=== PATIENT | female | born 1955 | race Hispanic/Latino ===

== ENCOUNTER 2018-05-16 14:07 | Observation (INO) | payer OTHER ==
--- NOTE | 2018-05-16 14:30 | ED PDOC ---
Arrival/HPI - General Chief Complaint: Hip Pain Allergies/Home Meds Allergies/Adverse Reactions: Allergies No Known Allergies Allergy (Verified 05/16/18 14:09) Physical Exam Vital Signs Temp Pulse Resp BP Pulse Ox 05/16/18 14:09 98.4 F 100 H 18 143/108 H 99 Disposition/Present on Arrival - Disposition
[2018-05-16] MEDS ORDERED: Sodium Chloride 0.9% 1,000 ML IV STA (14:51)
[2018-05-16 15:41] LABS: BASO # 0.1 K/uL (0.0-0.2); BASO % 0.7 % (0.0-2.0); EOS # 0.1 K/uL (0.0-0.7); EOS % 0.4 % (0.0-4.0); HEMOGLOBIN 15.7 g/dL (12.0-16.0); LYMPH # 1.7 K/uL (1.0-4.3); LYMPH % 11.7 % (20.0-40.0); MEAN CELL VOLUME 86.4 fl (81.0-99.0); MEAN CORPUSCULAR HEMOGLOBIN 30.1 pg (27.0-31.0); MEAN CORPUSCULAR HGB CONC 34.8 g/dL (33.0-37.0); MEAN PLATELET VOLUME 9.5 fl (7.2-11.7); MONO # 1.2 K/uL (0.0-0.8); MONO % 8.2 % (0.0-10.0); NEUT # 11.4 K/uL (1.8-7.0); RBC 5.23 Mil/uL (3.80-5.20); RED CELL DISTRIBUTION WIDTH 13.3 % (11.5-14.5); WHITE BLOOD COUNT 14.4 K/uL (4.8-10.8)
[2018-05-16 15:51] LABS: ALB/GLOB RATIO 1.4 (1.0-2.1); ALBUMIN 4.3 g/dL (3.5-5.0); ALT/SGPT 29 U/L (9-52); AST/SGOT 32 U/L (14-36); BLOOD UREA NITROGEN 10 mg/dl (7-17); CALCIUM 9.8 mg/dL (8.4-10.2); GFR NON-AFRICAN AMERICAN > 60
--- NOTE | 2018-05-16 16:13 | RAD ---
Date of service: 05/16/2018 PROCEDURE: LEFT HIP WITH PELVIS RADIOGRAPHS HISTORY: L hip pain COMPARISON: None available. TECHNIQUE: Frontal views of the pelvis and left hip been submitted with frog-leg lateral view left hip. FINDINGS: Pelvic ring is intact swells left hip with no fracture or dislocation identified. Symmetric moderate bilateral hip and sacroiliac joint degenerative changes are identified. No destructive bony lesion appreciated. Pubic symphysis appears intact swells sacrum, including sacral arcades. Advanced degenerative changes seen at the inferior facet joints lumbar spine. Symmetric nonaggressive cyst is seen the bilateral femoral necks nearly identical in position and each side. IMPRESSION: No fracture of the pelvic ring or the left hip joint. No dislocation left hip joint. Degenerative changes identified as discussed above.
--- NOTE | 2018-05-16 16:13 | RAD ---
Date of service: 05/16/2018 PROCEDURE: Left Knee Radiographs. HISTORY: Pain. COMPARISON: None. FINDINGS: BONES: No acute fracture or destructive bony lesion identified. JOINTS: Patient unable to straighten the left knee. No dislocation or subluxation appreciated. Plan patellar location appears within normal limits overall. JOINT EFFUSION: None. OTHER FINDINGS: None. IMPRESSION: No acute fracture or dislocation left knee.
[2018-05-16 16:54] LABS: SQUAMOUS EPITHIAL 1 /hpf (0-5); URINE BACTERIA RARE (<OCC); URINE BILIRUBIN NEGATIVE (NEGATIVE); URINE BLOOD NEGATIVE (NEGATIVE); URINE CLARITY CLEAR (Clear); URINE COLOR STRAW (YELLOW); URINE GLUCOSE (UA) NEG (Normal); URINE LEUKOCYTE ESTERASE TRACE Leu/uL (Negative); URINE PROTEIN NEGATIVE (NEGATIVE); URINE UROBILINOGEN 0.2-1.0 mg/dL (0.2-1.0)
[2018-05-16] MEDS ORDERED: Iodixanol 320 MG/ML 100 ML BOTTLE IV ONE (18:19)
[2018-05-16] MEDS ORDERED: Sodium Chloride 0.9% 50 ML IV ONE (18:19)
--- NOTE | 2018-05-16 18:38 | US ---
Left lower extremity ultrasound. Indication: Left leg pain, rule out DVT Technique: Duplex ultrasound evaluation of the left lower extremity Comparison: None available Findings: There is normal flow, compressibility, and augmentation of the left common femoral, femoral, and popliteal veins. The left posterior tibial vein appears patent. Impression: No evidence of deep venous thrombosis in the left lower extremity.
[2018-05-16] MEDS ORDERED: Iohexol 300 100 ML IJ ONE (18:41)
--- NOTE | 2018-05-16 18:57 | US ---
Date of service: 05/16/2018 PROCEDURE: Pelvic ultrasound dated 04/14/2010 18. HISTORY: Severe L pelvic pain, leukocytosis COMPARISON: Correlation made with CT scan chest abdomen pelvis 04/07/2010. TECHNIQUE: Transabdominal/transvaginal sonographic evaluation of the pelvis performed. FINDINGS: The uterus is anteverted measuring approximately 5.1 x 3.8 x 3.0 cm. Suspect a small posterior uterine fibroid measures approximate 1.4 x 1.1 x 1.2 cm. Endometrial stripe measures 4.0 cm. The the right ovary measures 3.1 x 1.6 x 1.6 cm and the left ovary measures 2.6 x 1.9 x 2.0 cm. Both ovaries exhibit arterial flow. No gross free fluid seen in cul-de-sac IMPRESSION: Suspect small posterior uterine fibroid as described.
--- NOTE | 2018-05-16 22:11 | ED PDOC ---
HPI: General Adult Time Seen by Provider: 05/16/18 14:43 Chief Complaint (Nursing): Hip Pain Chief Complaint (Provider): abdominal and groin pain History Per: Patient History/Exam Limitations: no limitations Onset/Duration Of Symptoms: Days (1) Current Symptoms Are (Timing): Still Present Severity: Severe Additional Complaint(s): 62yo female presents c/o severe L groin pain radiating to abdomen, hip and knee onset yesterday after bending over. Denies falls, trauma or back pain. Denies diarrhea or urinary symptoms. Admits to some nausea earlier. Denies prior hx similar pain. Pain severe, sharp and worse w lying down, relieved w standing. Past Medical History Reviewed: Historical Data, Nursing Documentation, Vital Signs Vital Signs: Last Vital Signs Temp 98.8 F 05/17/18 08:28 Pulse 64 05/17/18 08:28 Resp 18 05/17/18 08:28 BP 133/79 05/17/18 08:28 Pulse Ox 97 05/17/18 08:28 - Medical History PMH: No Chronic Diseases - Family History Family History: States: Unknown Family Hx - Social History Current smoker - smoking cessation education provided: No - Home Medications Home Medications: Ambulatory Orders Medication Instructions Recorded Ketorolac Tromethamine [Toradol] 10 mg PO Q6 PRN #10 tab 05/17/18 tiZANidine [Zanaflex] 4 mg PO Q8 #30 tab 05/17/18 - Allergies Allergies/Adverse Reactions: Allergies Allergy/AdvReac Type Severity Reaction Status Date / Time No Known Allergies Allergy Verified 05/16/18 14:09 Review of Systems ROS Statement: Except As Marked, All Systems Reviewed And Found Negative Constitutional: Negative for: Fever ENT: Negative for: Throat Pain Cardiovascular: Negative for: Chest Pain Respiratory: Negative for: Shortness of Breath, Hemoptysis Gastrointestinal: Positive for: Vomiting, Abdominal Pain Genitourinary Female: Positive for: Pelvic Pain. Negative for: Dysuria, Frequency, Vaginal Discharge Musculoskeletal: Positive for: Back Pain (mild), Leg Pain. Negative for: Neck Pain Skin: Negative for: Rash, Lesions Neurological: Negative for: Weakness, Numbness, Headache, Dizziness Psych: Negative for: Depression Physical Exam - Reviewed Nursing Documentation Reviewed: Yes Vital Signs Reviewed: Yes - Physical Exam Appears: Positive for: Uncomfortable (tearful, pain) Head Exam: Positive for: ATRAUMATIC, NORMAL INSPECTION, NORMOCEPHALIC Skin: Positive for: Normal Color, Warm, DRY Eye Exam: Positive for: EOMI, Normal appearance, PERRL ENT: Positive for: Normal ENT Inspection Neck: Positive for: Normal, Painless ROM Cardiovascular/Chest: Positive for: Regular Rate, Rhythm Respiratory: Positive for: CNT, Normal Breath Sounds Gastrointestinal/Abdominal: Positive for: Soft, Tenderness (L inguinal canal), Guarding (L hip/L pelvic area) Back: Positive for: Muscle Spasm. Negative for: R CVA Tenderness, Vertebral Tenderness Extremity: Positive for: Normal ROM Neurologic/Psych: Positive for: Alert, Oriented, Other (strength 5/5 both ext). Negative for: Motor/Sensory Deficits - Laboratory Results Result Diagrams: 05/17/18 05:15 05/17/18 05:15 - ECG O2 Sat by Pulse Oximetry: 99 Medical Decision Making Medical Decision Making: workup for vague pelvic/ inguinal pain radiating to hip and abdomen initiated labs performed, elevated WBC at 14.4 Chem and UA unremarkable Pain medicine initiated and monitored for response to therapeutics XRays performed unremarkable to ilicit cause of pain Abd CT and US pelvis ordered given persistent pain requiring repeat doses analgesics CT abd pel and US reports reviewed, no discernable visceral source of pain discovered patient remained in significant pain, tearful, requiring further analgesics. arrangements made for obs stay with [facility] for serial exams and possibly further diagnostics. Disposition - Clinical Impression Clinical Impression: Left hip pain, Abdominal pain - Patient ED Disposition Is Patient to be Admitted: Yes - Disposition Disposition Time: 22:00 Condition: STABLE - Pt Status Changed To: Hospital Disposition Of: Observation - POA Present On Arrival: None
[2018-05-16] MEDS ORDERED: Oxycodone/Acetaminophen 5/325 mg Tab PO PRN (22:27)
[2018-05-17 06:19] LABS: BASO % 0.5 % (0.0-2.0); EOS # 0.1 K/uL (0.0-0.7); EOS % 1.3 % (0.0-4.0); HEMOGLOBIN 14.1 g/dL (12.0-16.0); LYMPH # 1.7 K/uL (1.0-4.3); LYMPH % 18.8 % (20.0-40.0); MEAN CORPUSCULAR HEMOGLOBIN 30.4 pg (27.0-31.0); MEAN CORPUSCULAR HGB CONC 34.6 g/dL (33.0-37.0); MEAN PLATELET VOLUME 9.6 fl (7.2-11.7); NEUT # 6.1 K/uL (1.8-7.0); NEUT % 68.4 % (50.0-75.0); NRBC % 0.1 % (0.0-0.0); RBC 4.63 Mil/uL (3.80-5.20); RED CELL DISTRIBUTION WIDTH 13.6 % (11.5-14.5); WHITE BLOOD COUNT 8.9 K/uL (4.8-10.8)
[2018-05-17 06:23] LABS: ALB/GLOB RATIO 1.3 (1.0-2.1); ALBUMIN 3.5 g/dL (3.5-5.0); ALT/SGPT 30 U/L (9-52); AST/SGOT 24 U/L (14-36); BLOOD UREA NITROGEN 8 mg/dl (7-17); CALCIUM 8.7 mg/dL (8.4-10.2); GFR NON-AFRICAN AMERICAN > 60
[2018-05-17 08:29] VITALS: BP 133/79; PULSE 64; RESP 18; TEMP 98.8
--- NOTE | 2018-05-17 08:42 | CP.PCM.HP ---
History of Present Illness - History of Present Illness History of Present Illness: pt admitted for persistent left hip pain radiating to groin. no back pain. no numbness/tingling. had difficulty ambulating in ER yesterday. at present has rom of lle. distal pms intact.all imaging and bw noted, Present on Admission - Present on Admission Any Indicators Present on Admission: No Review of Systems - Musculoskeletal Musculoskeletal: As Per HPI, Arthralgias Past Patient History - Past Medical History & Family History Past Medical History?: No - Past Social History Smoking Status: Light Smoker < 10 Cigarettes Daily - MUSCULOSKELETAL/RHEUMATOLOGICAL Hx Falls: No - PSYCHIATRIC Hx Substance Use: No - ANESTHESIA Hx Anesthesia: No Hx Anesthesia Reactions: No Meds Allergies/Adverse Reactions: Allergies Allergy/AdvReac Type Severity Reaction Status Date / Time No Known Allergies Allergy Verified 05/16/18 14:09 Physical Exam - Constitutional Appears: Well, Non-toxic, No Acute Distress - Head Exam Head Exam: ATRAUMATIC, NORMAL INSPECTION, NORMOCEPHALIC - Eye Exam Eye Exam: EOMI, Normal appearance, PERRL Pupil Exam: NORMAL ACCOMODATION, PERRL - ENT Exam ENT Exam: Mucous Membranes Moist, Normal Exam - Neck Exam Neck exam: Positive for: Normal Inspection - Respiratory Exam Respiratory Exam: Clear to Auscultation Bilateral, NORMAL BREATHING PATTERN - Cardiovascular Exam Cardiovascular Exam: REGULAR RHYTHM, RRR, +S1, +S2 - GI/Abdominal Exam GI & Abdominal Exam: Normal Bowel Sounds, Soft. absent: Tenderness - Extremities Exam Extremities exam: Positive for: full ROM, normal capillary refill, normal inspection, pedal pulses present Additional comments: left hip pain w/ rom/palp - Back Exam Back exam: NORMAL INSPECTION - Neurological Exam Neurological exam: Alert, CN II-XII Intact, Normal Gait, Oriented x3, Reflexes Normal - Psychiatric Exam Psychiatric exam: Normal Affect, Normal Mood - Skin Skin Exam: Dry, Intact, Normal Color, Warm Results - Vital Signs Recent Vital Signs: Last Vital Signs Temp 98.8 F 05/17/18 08:28 Pulse 64 05/17/18 08:28 Resp 18 05/17/18 08:28 BP 133/79 05/17/18 08:28 Pulse Ox 97 05/17/18 08:28 - Labs Result Diagrams: 05/17/18 05:15 05/17/18 05:15 Labs: Laboratory Results - last 24 hr 05/16/18 05/16/18 05/16/18 15:36 15:36 16:41 WBC 14.4 H RBC 5.23 H Hgb 15.7 Hct 45.2 MCV 86.4 MCH 30.1 MCHC 34.8 RDW 13.3 Plt Count 220 MPV 9.5 Neut % (Auto) 79.0 H Lymph % (Auto) 11.7 L [place] % (Auto) 8.2 Eos % (Auto) 0.4 Baso % (Auto) 0.7 Neut # (Auto) 11.4 H Lymph # (Auto) 1.7 [place] # (Auto) 1.2 H Eos # (Auto) 0.1 Baso # (Auto) 0.1 Sodium 139 Potassium 4.1 Chloride 107 Carbon Dioxide 25 Anion Gap 11 BUN 10 Creatinine 0.7 Est GFR ( Amer) > 60 Est GFR (Non-Af Amer) > 60 Random Glucose 91 Calcium 9.8 Phosphorus Magnesium Total Bilirubin 0.5 AST 32 ALT 29 Alkaline Phosphatase 85 Total Creatine Kinase 78 Total Protein 7.4 Albumin 4.3 Globulin 3.1 Albumin/Globulin Ratio 1.4 Urine Color Straw Urine Clarity Clear Urine pH 6.0 Ur Specific [place] 1.005 Urine Protein Negative Urine Glucose (UA) Neg Urine Ketones Negative Urine Blood Negative Urine Nitrate Negative Urine Bilirubin Negative Urine Urobilinogen 0.2-1.0 Ur Leukocyte Esterase Trace Urine RBC (Auto) 1 Urine Microscopic WBC 6 H Ur Squamous Epith Cells 1 Urine Bacteria Rare 05/17/18 05/17/18 05:15 05:15 WBC 8.9 RBC 4.63 Hgb 14.1 Hct 40.8 MCV 88.0 MCH 30.4 MCHC 34.6 RDW 13.6 Plt Count 180 MPV 9.6 Neut % (Auto) 68.4 Lymph % (Auto) 18.8 L [place] % (Auto) 11.0 H Eos % (Auto) 1.3 Baso % (Auto) 0.5 Neut # (Auto) 6.1 Lymph # (Auto) 1.7 [place] # (Auto) 1.0 H Eos # (Auto) 0.1 Baso # (Auto) 0.0 Sodium 141 Potassium 3.9 Chloride 109 H Carbon Dioxide 27 Anion Gap 9 L BUN 8 Creatinine 0.7 Est GFR ( Amer) > 60 Est GFR (Non-Af Amer) > 60 Random Glucose 90 Calcium 8.7 Phosphorus 3.5 Magnesium 2.3 Total Bilirubin 0.7 AST 24 ALT 30 Alkaline Phosphatase 58 Total Creatine Kinase Total Protein 6.1 L Albumin 3.5 Globulin 2.6 Albumin/Globulin Ratio 1.3 Urine Color Urine Clarity Urine pH Ur Specific [place] Urine Protein Urine Glucose (UA) Urine Ketones Urine Blood Urine Nitrate Urine Bilirubin Urine Urobilinogen Ur Leukocyte Esterase Urine RBC (Auto) Urine Microscopic WBC Ur Squamous Epith Cells Urine Bacteria Assessment & Plan (1) Left hip pain Assessment and Plan: pain control muscle relaxers pt eval hold on further imaging for now Status: Acute (2) DVT prophylaxis Assessment and Plan: scd nad aehose ambulation Status: Acute Decision To Admit - Pt Status Changed To: Hospital Disposition Of: Observation - . Bed Request Type: Med/Surg Admitting Physician: Aneudy Hutchins
--- NOTE | 2018-05-17 09:48 | CT ---
Date of service: 05/16/2018 PROCEDURE: CT Abdomen and Pelvis without and with intravenous contrast HISTORY: severe L pelvic pain, leukocytosis COMPARISON: Noncontrast abdomen and pelvis CT 04/07/2010. TECHNIQUE: Prior to and following the intravenous administration of iodinated contrast material, a CT examination of the abdomen and pelvis performed from the domes of the diaphragms to the symphysis pubis with reformatted datasets provided in axial, sagittal and coronal planes. Oral contrast was not administered as per referring physician request. Contrast dose: Omnipaque 300, 90 cc Radiation dose: Total exam DLP = 1037.08 mGy-cm. This CT exam was performed using one or more of the following dose reduction techniques: Automated exposure control, adjustment of the mA and/or kV according to patient size, and/or use of iterative reconstruction technique. FINDINGS: LOWER THORAX: Unremarkable. LIVER: Unremarkable. No gross lesion or ductal dilatation. GALLBLADDER AND BILE DUCTS: Unremarkable. PANCREAS: Unremarkable. No gross lesion or ductal dilatation. SPLEEN: Unremarkable. ADRENALS: Unremarkable. No mass. KIDNEYS AND URETERS: Unremarkable. No hydronephrosis. No solid mass. VASCULATURE: Trace atherosclerotic changes seen in the abdominal aorta which is not aneurysmal and is minimally seen in the lower IVC as well. BOWEL: Unremarkable. No obstruction. No pericolic or perienteric reactive changes. APPENDIX: Normal-appearing appendix. PERITONEUM: Unremarkable. No free fluid. No free air. LYMPH NODES: Unremarkable. No enlarged lymph nodes. BLADDER: Unremarkable. REPRODUCTIVE: Limited uterine fibroid changes identified. BONES: No acute fracture. OTHER FINDINGS: None. IMPRESSION: Nonacute abdomen pelvis CT examination including imaging through the pelvis. Limited uterine fibroid disease appreciated. Concordant preliminary report from [facility], 05/16/2018.
--- NOTE | 2018-05-19 08:58 | CP.PCM.DIS ---
Provider - Provider Date of Admission: 05/16/18 22:05 Attending physician: Aneudy Hutchins MD Time Spent in preparation of Discharge (in minutes): 15 Diagnosis - Discharge Diagnosis (1) Left hip pain Status: Acute (2) DVT prophylaxis Status: Acute Hospital Course - Lab Results Lab Results: Most Recent Lab Values WBC 8.9 K/uL (4.8-10.8) 05/17/18 05:15 RBC 4.63 Mil/uL (3.80-5.20) 05/17/18 05:15 Hgb 14.1 g/dL (12.0-16.0) 05/17/18 05:15 Hct 40.8 % (34.0-47.0) 05/17/18 05:15 MCV 88.0 fl (81.0-99.0) 05/17/18 05:15 MCH 30.4 pg (27.0-31.0) 05/17/18 05:15 MCHC 34.6 g/dL (33.0-37.0) 05/17/18 05:15 RDW 13.6 % (11.5-14.5) 05/17/18 05:15 Plt Count 180 K/uL (130-400) 05/17/18 05:15 MPV 9.6 fl (7.2-11.7) 05/17/18 05:15 Neut % (Auto) 68.4 % (50.0-75.0) 05/17/18 05:15 Lymph % (Auto) 18.8 % (20.0-40.0) L 05/17/18 05:15 [place] % (Auto) 11.0 % (0.0-10.0) H 05/17/18 05:15 Eos % (Auto) 1.3 % (0.0-4.0) 05/17/18 05:15 Baso % (Auto) 0.5 % (0.0-2.0) 05/17/18 05:15 Neut # (Auto) 6.1 K/uL (1.8-7.0) 05/17/18 05:15 Lymph # (Auto) 1.7 K/uL (1.0-4.3) 05/17/18 05:15 [place] # (Auto) 1.0 K/uL (0.0-0.8) H 05/17/18 05:15 Eos # (Auto) 0.1 K/uL (0.0-0.7) 05/17/18 05:15 Baso # (Auto) 0.0 K/uL (0.0-0.2) 05/17/18 05:15 Sodium 141 mmol/l (132-148) 05/17/18 05:15 Potassium 3.9 MMOL/L (3.6-5.0) 05/17/18 05:15 Chloride 109 mmol/L (98-107) H 05/17/18 05:15 Carbon Dioxide 27 mmol/L (22-30) 05/17/18 05:15 Anion Gap 9 (10-20) L 05/17/18 05:15 BUN 8 mg/dl (7-17) 05/17/18 05:15 Creatinine 0.7 mg/dl (0.7-1.2) 05/17/18 05:15 Est GFR ( Amer) > 60 05/17/18 05:15 Est GFR (Non-Af Amer) > 60 05/17/18 05:15 Random Glucose 90 mg/dL (65-105) 05/17/18 05:15 Calcium 8.7 mg/dL (8.4-10.2) 05/17/18 05:15 Phosphorus 3.5 mg/dl (2.5-4.5) 05/17/18 05:15 Magnesium 2.3 MG/DL (1.6-2.3) 05/17/18 05:15 Total Bilirubin 0.7 mg/dl (0.2-1.3) 05/17/18 05:15 AST 24 U/L (14-36) 05/17/18 05:15 ALT 30 U/L (9-52) 05/17/18 05:15 Alkaline Phosphatase 58 U/L (38-126) 05/17/18 05:15 Total Creatine Kinase 78 U/L (30-135) 05/16/18 15:36 Total Protein 6.1 G/DL (6.3-8.2) L 05/17/18 05:15 Albumin 3.5 g/dL (3.5-5.0) 05/17/18 05:15 Globulin 2.6 gm/dL (2.2-3.9) 05/17/18 05:15 Albumin/Globulin Ratio 1.3 (1.0-2.1) 05/17/18 05:15 Urine Color Straw (YELLOW) 05/16/18 16:41 Urine Clarity Clear (Clear) 05/16/18 16:41 Urine pH 6.0 (5.0-8.0) 05/16/18 16:41 Ur Specific [place] 1.005 (1.003-1.030) 05/16/18 16:41 Urine Protein Negative mg/dL (NEGATIVE) 05/16/18 16:41 Urine Glucose (UA) Neg mg/dL (Normal) 05/16/18 16:41 Urine Ketones Negative mg/dL (NEGATIVE) 05/16/18 16:41 Urine Blood Negative (NEGATIVE) 05/16/18 16:41 Urine Nitrate Negative (NEGATIVE) 05/16/18 16:41 Urine Bilirubin Negative (NEGATIVE) 05/16/18 16:41 Urine Urobilinogen 0.2-1.0 mg/dL (0.2-1.0) 05/16/18 16:41 Ur Leukocyte Esterase Trace [place]/uL (Negative) 05/16/18 16:41 Urine RBC (Auto) 1 /hpf (0-3) 05/16/18 16:41 Urine Microscopic WBC 6 /hpf (0-5) H 05/16/18 16:41 Ur Squamous Epith Cells 1 /hpf (0-5) 05/16/18 16:41 Urine Bacteria Rare (<OCC) 05/16/18 16:41 - Hospital Course Hospital Course: pt doing well, amb w/ pt. pain controlled Discharge Exam - Head Exam Head Exam: ATRAUMATIC, NORMAL INSPECTION, NORMOCEPHALIC Discharge Plan - Discharge Medications Prescriptions: Ketorolac Tromethamine [Toradol] 10 mg PO Q6 PRN #10 tab PRN Reason: pain 6-10 tiZANidine [Zanaflex] 4 mg PO Q8 #30 tab - Follow Up Plan Condition: STABLE Disposition: HOME/ ROUTINE Instructions: Hip Pain (DC) Additional Instructions: final dx-hip pain, abd pain controlled pain, ambulating f/u rmg rted prn, meds pe rmed rec Referrals: Morales Ortiz, DNP, [employer] G[employer] UNIT OPERATOR [Advanced Practice Nurse] -
[2018-05-19 17:06] VITALS: O2SAT 99
== END 2018-05-17 14:44 | disposition home or self-care (01) ==
LOC: H.ER 14:07 → H.ERHOLD 22:05 → H.MEDSURG1 05-17 00:34
PROVIDERS: ADMIT Family Medicine; ATTEND Family Medicine
DX: M25.552 Pain in left hip (principal); R10.814 Left lower quadrant abdominal tenderness; D72.829 Elevated white blood cell count, unspecified; F17.210 Nicotine dependence, cigarettes, uncomplicated
CPT/HCPCS: 36415; 73502; 73562; 74178; 76830; 76856; 80053; 81003; 82550; 83735; 84100; 85025; 93971; 96374; 97116; 97161; 99284; G0378; G8978; G8979; J1885; J2270; J7030; Q9967